=== PATIENT | female | born 1990 | race Two or more races ===

== ENCOUNTER 2025-04-28 19:24 | Emergency (ER) | payer SELFPAY ==
[~2025-04-28] VITALS: Ht 160 cm; Wt 93.1 kg
--- NOTE | 2025-04-28 20:29 | ED.PDOC ---
History of Present Illness HPI Comments 35-year-old female who came to ER for dental pain. He states she has a cracked tooth on the left side for weeks. Earlier today, she started noticing left facial swelling and left-sided headaches. Patient has yet to see a dentist regarding her dental issues REVIEW OF SYSTEMS: General: No fever, no chills, or fatigue HEENT: No sore throat, no earache, no congestion, no neck pain. (+) dental pain,+ facial swelling Cardiac: No chest pain. No palpitations. Lungs: No shortness of breath, no cough. GI: No nausea, no vomiting, no diarrhea, no constipation, no abdominal pain : No dysuria, frequency, or urgency. No hematuria. Musculoskeletal: No joint pain , no joint swelling, no extremity edema. Skin: No rash, no itching. Neuro: No headache, no dizziness, no weakness PHYSICAL EXAM: General: Awake, alert and oriented. No acute distress. Skin: Skin in warm, dry and intact without rashes or lesions. HEENT: There is left lower facial swelling, gingival edema. Tenderness to percussion of the left lower molars. Neck: Normal range of motion. No JVD. Cardiac: Regular rate Respiratory: No signs of respiratory distress. No Stridor. Extremities: Upper and lower extremities are atraumatic in appearance without deformity. Neurological: The patient is awake, alert and oriented to person, place, and time with normal speech. Speech is clear. There is no facial asymmetry. Normal gait Psychiatric: Appropriate mood and affect. Good judgement and insight. Chief Complaint: Tooth Pain Time Seen by MD: 20:29 Reviewed Notes: Nurses Notes Allergies: Coded Allergies: No Known Drug Allergy (Verified Allergy, Unknown, 04/28/25) Home Meds Active Scripts Ketorolac Tromethamine (Ketorolac Tromethamine) 10 Mg Tab, 1 TAB PO TID PRN, #15 TAB Prov:CELESTE COSTELLO MD 04/28/25 Acetaminophen (Acetaminophen Er) 650 Mg Tab, 650 MG PO TIDPRN PRN, #15 TAB Prov:CELESTE COSTELLO MD 04/28/25 Clindamycin Hcl (Clindamycin Hcl) 300 Mg Cap, 300 MG PO TID for 7 Days, #14 CAP Prov:CELESTE COSTELLO MD 04/28/25 Information Source: Patient Mode of Arrival: Ambulatory Past Medical History PAST MEDICAL HISTORY: Denies Surgical History: Denies all surgeries [employer]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 Was a procedure done?: No Differential Dx Considerations may include: Dental caries, dental alveolar abscess X-Ray, Labs, Meds, VS Vital Signs Date Time Temp Pulse Resp B/P (MAP) Pulse Ox O2 Delivery O2 Flow Rate FiO2 04/28/25 21:11 109 16 98 Room Air* 0 04/28/25 21:10 98.0 109 16 143/102 (116) 98 98.0 04/28/25 19:54 98.3 97 18 130/83 97 98.3 Time of 1ST Reevaluation: 20:26 Reevaluation 1ST: Unchanged Patient Education/Counseling: Need For Follow Up Family Education/Counseling: No Family Present SEPSIS Sepsis Screen Date sepsis recognized/suspect: Apr 28, 2025 Time Sepsis recognized/suspect: 1999 Recent Procedure: No On Antibiotic Therapy: No Respiratory Rate >20: No Heart Rate >90: No Temp<36 C (96.8 F) or >38.3 C: No SBP <90 or MAP <65 mmHG: No New Acute Mental Status Change: No Is the patient on CPAP, BIPAP,: No Vital Signs Date Time Temp Pulse Resp B/P (MAP) Pulse Ox O2 Delivery O2 Flow Rate FiO2 04/28/25 21:11 109 16 98 Room Air* 0 04/28/25 21:10 98.0 109 16 143/102 (116) 98 98.0 04/28/25 19:54 98.3 97 18 130/83 97 98.3 Departure 1 Departure Time of Disposition: 21:35 Impression: Primary Impression: Dental infection Additional Impression: Facial cellulitis Disposition: HOME / SELF CARE / HOMELESS Condition: Stable Additional Instructions: ED DISCHARGE INSTRUCTIONS Instructions: Please read all instructions provided in this packet carefully. It is very important that you follow up with the dentist as soon as possible. Take all antibiotics as prescribed. Although you have been discharged from the Emergency Department, this does not mean that you have a "clean bill of health". No definitive diagnosis for your symptoms has been made today. It is possible that you are in the process of developing a serious illness. This is why you must return to the ED without fail if any new or worsening symptoms (especially if your symptoms include worsening facial swelling, trouble swallowing, worsening pain, chest pain, trouble breathing, abdominal pain, fever, headache, confusion, trouble seeing, or trouble walking) It is also very important that you see a primary care provider (PCP) within the next 3 days to follow up. If you are unable to get an appointment, return to the ED for re-evaluation. e-Prescriptions Ketorolac Tromethamine (Ketorolac Tromethamine) 10 Mg Tab 1 TAB PO TID PRN, #15 TAB Prov: CELESTE COSTELLO MD 04/28/25 Acetaminophen (Acetaminophen Er) 650 Mg Tab 650 MG PO TIDPRN PRN, #15 TAB Prov: CELESTE COSTELLO MD 04/28/25 Clindamycin Hcl (Clindamycin Hcl) 300 Mg Cap 300 MG PO TID for 7 Days, #14 CAP Prov: CELESTE COSTELLO MD 04/28/25 Comments 35-year-old female with dental infection. No sign of airway compromise or pharyngeal abscess. Patient felt stable for discharge home to follow up with Dentistry. Patient well-appearing, nontoxic. Advised prompt follow-up with PCP, return to the ED with any new, worsening or concerning symptoms. Critical Care Note Critical Care Time?: No Stability Stability form required: No Heart Score Heart Score: Heart Score Response (Comments) Value History N/A 0 EKG N/A 0 Age N/A 0 Risk Factors N/A 0 Troponin N/A 0 Total 0 I personally scribed for CELESTE COSTELLO MD ([email or web address]) on 04/28/25 at 20:29. Electronically submitted by Evgeny Fonseca ([email or web address]). CELESTE COSTELLO MD Apr 28, 2025 20:29
[2025-04-28 21:10] VITALS: BP 143/102; TEMP 98
[2025-04-28 21:11] VITALS: PULSE 109; RESP 16; O2SAT 98
[2025-04-28] MEDS: CLINDAMYCIN 600MG IV 50 ML IV ONE (21:30)
[2025-04-28] MEDS ORDERED: KETO10TA PO (21:39)
[2025-04-28] MEDS ORDERED: CLIN1CAP70 PO (21:39)
[2025-04-28] MEDS ORDERED: ACET650T12 PO (21:39)
[2025-04-28] MEDS: ACETAMINOPHEN 325 MG TAB PO ONE (21:44)
[2025-04-28] MEDS: KETOROLAC TROMETH 30 MG/ML 1ML VIAL IV ONE (21:44)
== END 2025-04-28 21:52 | disposition home or self-care (01) ==
LOC: ER 19:24
DX: K04.7 Periapical abscess without sinus (principal); L03.211 Cellulitis of face
CPT/HCPCS: 96365; 96375; 99284; J1885; J3490